=== PATIENT | female | born 1955 ===

== ENCOUNTER 2024-04-02 15:34 | Outpatient (CLI) | payer MEDICARE, SELFPAY ==
[2024-04-02] VITALS (7 sets, daily range): BP systolic 176–201; BP diastolic 92–105; PULSE 91–97; RESP 16–20; TEMP 37; O2SAT 92–94
[2024-04-02] MEDS: methylPREDNISolone ACETATE 80 MG/ML VIAL IJ (16:23)
[2024-04-02] MEDS: Omnipaque 240 MG/ML 50 ML BTL IJ (16:23)
[2024-04-02] MEDS: Epidural Tray 1 EACH MC (16:23)
--- NOTE | 2024-04-02 16:24 | PDOC.PAIN ---
Date of service: 04/02/24 Time of Service: 16:24 Pain Managment Procedure Note Procedure Note Procedure Note: PROCEDURE NOTE LUMBAR EPIDURAL STEROID INJECTION Date of Service: April 02, 2024 Patient:JHOAN YBARRA? Provider: Sarbjit Saucedo DO, MPH JHOAN LÓPEZ has been referred to the [facility] for a lumbar epidural steroid injection. Pre-operative diagnosis: Lumbosacral Radiculopathy ICD-10 M54.16 Post-operative diagnosis: Same Pre-Procedure Pain: VAS= 7-8/10 Comments: I previously evaluated her in the office. Her pain was unchanged prior to the procedure. JHOAN was interviewed and the medical record was reviewed.? There were no medical, pharmacologic, radiographic or other structural contraindications to attempting fluoroscopically guided Lumbar epidural steroid injection.? Risks, potential side effects, indications, and potential benefits of the procedure were reviewed with JHOAN.? Questions and concerns were addressed.? After it was clear that JHOAN was fully informed about the procedure, the printed consent form was signed by the patient and myself.? JHOAN was placed in the prone position on the fluoroscopy table and automated blood pressure cuff and pulse oximeter applied. The skin entry point for entering/approaching the epidural space for the lumbar epidural steroid injection was marked. Following thorough chlorhexadine preparation of the skin and draping and 1% lidocaine infiltration of the skin entry point and subcutaneous tissues, an 18 gauge Touhy needle was placed and advanced under fluoroscopic guidance and with loss of resistance technique into the L5-S1 epidural space. Needle tip placement and depth were aided and confirmed by fluoroscopy. There was no paresthesia or return of blood or CSF through the needle. 1 mls of Omnipaque 240 was injected with clear epidural spread confirmed with fluoroscopy. 80 mg of Depo-Medrol was? injected. This was followed by 1 ml of preservative-free normal saline to flush the steroid out of the needle. There was no unusual discomfort expressed by JHOAN. The needle was withdrawn without difficulty. (49 mls of Omnipaque was wasted) JHOAN was observed and was without hemodynamic, neurologic, or allergic reactions.? Fluoroscopic images were digitally archived. JHOAN's vital signs were stable throughout the procedure and were as recorded in nursing records. Follow up plans and appointments were discussed with JHOAN. Post procedure instruction was given as documented in nursing records and having met discharge criteria JHOAN was discharged from the [facility]. COMMENTS: No apparent complications. Post-procedure pain: VAS= 0/10. JHOAN to contact [facility] as needed. If at least 50% improvement in pain and/or function for at least 3 months is achieved, this procedure can be repeated. I personally performed this entire procedure. SARBJIT SAUCEDO DO, MPH ABPMR-subspecialty board certification in Pain Medicine [facility]
--- NOTE | 2024-04-02 17:11 | DI.RAD_ITS ---
Exam(s) XR PAIN CLINIC LUMBAR SP 2V EXAM: XR PAIN CLINIC LUMBAR SP 2V CLINICAL HISTORY: DX: Lumbar Radiculopathy. TECHNIQUE: Fluoroscopy was provided for the referring physician for guidance with performing pain cl inic injection procedure. COMPARISON: No exams were available for comparison FINDINGS: Please see procedure note for details. Fluoro time: 13.6 seconds RADIATION DOSE DELIVERED: Ka,r=3.2 mGy
== END 2024-04-02 15:35 | disposition home or self-care (01) ==
LOC: PC 15:36
PROVIDERS: Visit Provider Preventive Medicine Occupational Medicine
DX: M54.50 Low back pain, unspecified (principal); M54.16 Radiculopathy, lumbar region
CPT/HCPCS: 62323; 72100; J1010; Q9967

== ENCOUNTER → 2024-07-08 09:55 | Outpatient (BNVA) | payer MEDICARE, SELFPAY | PROVIDERS: PCP Family Medicine; Referring Provider Family Medicine; Visit Provider Physician Assistant Surgical | DX: J44.9 Chronic obstructive pulmonary disease, unspecified (principal); R91.1 Solitary pulmonary nodule | CPT/HCPCS: 99205 ==

== ENCOUNTER → 2024-08-05 07:44 | Outpatient (BNVA) | payer MEDICARE, SELFPAY | PROVIDERS: PCP Family Medicine; Referring Provider Family Medicine; Visit Provider Physician Assistant Surgical | DX: R91.1 Solitary pulmonary nodule (principal); F17.210 Nicotine dependence, cigarettes, uncomplicated | CPT/HCPCS: 99214 ==

== ENCOUNTER → 2025-02-03 07:28 | Outpatient (BNVA) | payer MEDICARE, SELFPAY | PROVIDERS: PCP Family Medicine; Referring Provider Family Medicine; Visit Provider Physician Assistant Surgical | DX: R91.1 Solitary pulmonary nodule (principal); F17.210 Nicotine dependence, cigarettes, uncomplicated | CPT/HCPCS: 99214; G0296 ==